=== PATIENT | female | born 1990 | race Caucasian/White ===

== ENCOUNTER 2018-02-03 00:39 | Emergency (ER) | payer OTHER ==
[2018-02-03] MEDS ORDERED: Ketorolac 60 MG/2 ML SDV IM ONE (00:54)
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
== END 2018-02-03 01:35 | disposition home or self-care (01) ==
LOC: MW.ED 00:39
DX: S60.222A Contusion of left hand, initial encounter (principal); S40.022A Contusion of left upper arm, initial encounter; S50.312A Abrasion of left elbow, initial encounter; V43.52XA Car driver injured in collision with other type car in traffic accident, initial encounter
CPT/HCPCS: 73090; 73130; 96372; 99283; J1885